=== PATIENT | female | born 1950 | race American Indian/Alaskan Native ===

== ENCOUNTER 2018-03-31 14:41 | Observation (INO) | payer MEDICARE ==
[~2018-03-31] VITALS: Ht 149.9 cm; Wt 65.3 kg
[2018-03-31 16:13] LABS: BASOPHILS % 0.1 % (0.0-1.0); EOSINOPHILS # (AUTO) 0.1 (0.0-0.4); EOSINOPHILS % 0.6 % (0.0-6.0); HEMOGLOBIN 10.4 g/dL (12.0-16.0); LYMPHOCYTES # (AUTO) 0.9 (1.0-3.2); LYMPHOCYTES % 9.4 % (18.0-39.1); MEAN CORPUSCULAR HEMOGLOBIN 22.4 pg (28-32); MEAN CORPUSCULAR HGB CONC 31.5 g/dL (31-35); MEAN CORPUSCULAR VOLUME 71.1 fL (81-99); MONOCYTES # (AUTO) 0.6 (0.2-0.8); MONOCYTES % 6.5 % (4.4-11.3); NEUTROPHILS # (AUTO) 7.7 (2.1-6.9); PLATELET COUNT 320 x10e3/uL (140-360); RED BLOOD COUNT 4.64 x10e6/uL (3.6-5.1); RED CELL DISTRIBUTION WIDTH 18.8 % (11.7-14.4)
[2018-03-31 16:25] LABS: INR 1.03; PROTHROMBIN TIME 12.7 seconds (11.9-14.5)
[2018-03-31 16:26] LABS: PARTIAL THROMBOPLASTIN TIME 26.4 seconds (23.8-35.5)
--- NOTE | 2018-03-31 16:32 | Diagnostic Imaging Report ---
EXAMINATION: PA and lateral views of the chest. COMPARISON: None CLINICAL HISTORY: Shortness of breath, history of lower lobectomy DISCUSSION: Lines/tubes: Right upper chest Port-A-Cath, with the catheter tip projecting in the distal SVC.. A radiopaque drainage catheter projects in the left lower hemithorax Lungs and pleura: Lungs are well-inflated. There is layering opacification of the left hemithorax, consistent with a large pleural effusion and likely associated compressive atelectasis. The right lung is clear.. Heart and mediastinum: Cardiac silhouette is obscured. Right pulmonary vasculature is normal. Bones and soft tissues: No acute bony abnormalities. Degenerative changes in the thoracic spine IMPRESSION: Findings likely represent large pleural effusion and likely associated compressive atelectasis. This may also represent post lobectomy pneumothorax or chylothorax, if there is history of recent surgery Signed by: Dr. Jt Azul M.D. on 03/31/2018 4:28 PM
[2018-03-31 16:38] LABS: ALANINE AMINOTRANSFERASE 12 IU/L (0-55); ALBUMIN 2.2 g/dL (3.5-5.0); ALBUMIN/GLOBULIN RATIO 0.7 (0.8-2.0); ALKALINE PHOSPHATASE 98 IU/L (40-150); ANION GAP 14.5 mmol/L (8-16); BLOOD UREA NITROGEN 12 mg/dL (7-26); BUN/CREATININE RATIO 16 (6-25); CALCIUM 8.5 mg/dL (8.4-10.2); CARBON DIOXIDE 22 mmol/L (22-29); CHLORIDE 107 mmol/L (98-107); CREATINE KINASE 31 IU/L (29-168); CREATININE, SERUM 0.74 mg/dL (0.57-1.11); EST GLOMERULAR FILTRATION RATE > 60 ML/MIN (60-); GLUCOSE 125 mg/dL (74-118); MAGNESIUM 1.5 MG/DL (1.3-2.1); POTASSIUM 3.5 mmol/L (3.5-5.1); SODIUM 140 mmol/L (136-145)
[2018-03-31 16:45] LABS: B-TYPE NATRIURETIC PEPTIDE2 86.6 pg/mL (0-100)
[2018-03-31] MEDS ORDERED: OXYCODONE/ACETAMINOPHEN 5-325 1 EACH TABLET PO STA (17:26)
[2018-03-31] MEDS ORDERED: PRILOSEC10 M1 (18:52)
[2018-03-31] MEDS ORDERED: ASPIR 8181 MG (18:52)
[2018-03-31] MEDS ORDERED: GABAPENTIN400 MG PO (18:52)
[2018-03-31] MEDS ORDERED: PROGRAF1 MG (18:52)
[2018-03-31] MEDS ORDERED: PERCOCET 5-3251 EACH (18:52)
[2018-03-31] MEDS ORDERED: METOPROLOL TART25 MG PO (18:52)
[2018-03-31 21:00] VITALS: BP 179/77
[2018-03-31] MEDS: OXYCODONE/ACETAMINOPHEN 5-325 1 EACH TABLET PO PRN (21:50)
[2018-03-31] MEDS ORDERED: OXYCODONE/ACETAMINOPHEN 5-325 1 EACH TABLET PO SCH (22:00)
[2018-04-01] VITALS (10 sets, daily range): BP systolic 145–192; BP diastolic 66–83
[2018-04-01] MEDS ORDERED: ALBUTEROL/IPRATROPIUM 3 ML NEB NEB SCH (01:00)
--- NOTE | 2018-04-01 01:25 | Consultation ---
DATE OF CONSULTATION: March 31, 2018 PULMONARY CONSULTATION REASON FOR THE CONSULT: Large left pleural effusion. CHIEF COMPLAINT: Shortness of breath. HPI: Ms. Thomas is a 67-year-old female. She lives in [place], [place] and was diagnosed with lung cancer with malignant pleural effusion. She has an indwelling pleural catheter placed; however, she forgot to bring the drainage kit with her. She came to [place] to be treated at [facility] and she has already seen Dr. Langford at [facility] for her lung cancer. She reports that she underwent lobectomy and after lobectomy, she possibly had a recurrence and now there are cancer cells and pleural effusion according to her. She denies any chest pain. She was having shortness of breath in the emergency room. Some of the pleural fluid was drained by the emergency room physician. She denies any chest pain, nausea, vomiting. REVIEW OF SYSTEMS GENERAL: Denies any fever, chills. HEAD: Denies any head trauma. ENT: Denies any earache. CVS: Denies any chest pain. RESPIRATORY: Shortness of breath. GI: Denies any nausea, vomiting. REST OF THE REVIEW SYSTEMS: Negative except as in HPI. PAST MEDICAL HISTORY 1. Status post liver transplant in 2014. Patient has alcoholic liver cirrhosis. She quit drinking for a year and underwent liver transplant. She is on Prograf. 2. Lung cancer, she has right-sided pleural effusion, which according to the patient is malignant and that has been tested. 3. Hypertension. PAST SURGICAL HISTORY: Cholecystectomy, appendectomy, incisional hernia surgery, liver transplant surgery, lobectomy, cholecystectomy. FAMILY HISTORY AND SOCIAL HISTORY: She quit smoking 3 months ago, smoked cigarettes since she was 14 years old. She smoked for 50 years. She quit drinking in 2013. She he lives in [place], [place], and all her care was at [place], [place]. Now, she has moved to [place] to be treated at [facility]. PHYSICAL EXAM VITAL SIGNS: Temperature 98.6, pulse of 85, blood pressure 167/82, he has respiratory rate of 18. O2 sat 95%. HEENT: Head atraumatic, normocephalic. NECK: Supple. CHEST: Clear to auscultation bilaterally. Reduced air entry on the right side. HEART: S1, S2 audible. ABDOMEN: Soft, nontender. EXTREMITIES: Pedal edema. NEUROLOGIC: Awake and alert. No focal neurologic deficit. LABS: White count of 9000, hemoglobin 10.4, platelets 320,000. Chemistry, sodium 140, potassium 3.5, chloride 107, BUN 12, creatinine 0.7. Chest x-ray showing large right-sided pleural effusion. ASSESSMENT AND PLAN: Ms. Thomas is a 67-year-old female with lung cancer. She was diagnosed with malignant pleural effusion and has a PleurX catheter; however, she forgot to bring her supplies and has came to the emergency room with shortness of breath. CURRENT PROBLEMS 1. Lung cancer. 2. Malignant pleural effusion. 3. History of liver transplant. 4. Ex-smoker. 5. Chronic obstructive pulmonary disease. PLAN 1. We will put a case management consult to find a [employer] company to provide her with supplies of her PleurX catheter. 2. Will start the patient on nebulizer treatment for her COPD. 3. Currently, some fluid was drained by ER physician and patient is feeling comfortable. If further drainage is needed and the catheter is not working, she will have to have conventional thoracentesis. Thank you for this consult. Job#: [id number] CQ
[2018-04-01] MEDS: OXYCODONE/ACETAMINOPHEN 5-325 1 EACH TABLET PO PRN ×5 (01:50→20:10)
[2018-04-01] MEDS: METOPROLOL TARTRATE 25 MG TAB PO SCH ×2 (08:48→16:12)
[2018-04-01] MEDS: ASPIRIN 81 MG CHEW TAB PO SCH (08:48)
[2018-04-01] MEDS: GABAPENTIN 300 MG CAP PO SCH (08:48)
[2018-04-01] MEDS: AMLODIPINE BESYLATE 5 MG TAB PO SCH (08:49)
[2018-04-01] MEDS ORDERED: GABAPENTIN 400 MG CAP PO SCH (09:00)
[2018-04-01] MEDS: TACROLIMUS 1 MG CAP PO SCH (10:15)
--- NOTE | 2018-04-01 12:11 | Diagnostic Imaging Report ---
This report includes an Addendum and supersedes previous reports for this exam. PROCEDURE: CHEST XRAY POST PROCEDURE COMPARISON: Chest radiograph 03/31/18. INDICATIONS: POST THORACENTESIS FINDINGS: Lines/tubes: Right upper chest Port-A-Cath, with the catheter tip projecting in the distal SVC. A PleurX catheter projects over the left base. Lungs and pleura: Lungs are well-inflated. Interval decrease in size of a left sided pleural effusion, now small. There is opacification of the left hemithorax with prominence of the left hilum. There is thickening of the left pleura. The right lung is clear without evidence of pneumonia or pulmonary edema. Heart and mediastinum: Cardiac silhouette is obscured. Right pulmonary vasculature is normal. Bones and soft tissues: No acute bony abnormalities. Degenerative changes in the thoracic spine IMPRESSION: Interval thoracentesis on the left with decreased left pleural effusion and decreased compressive atelectasis. No evidence of pneumothorax. Opacification of the left hemithorax with prominence of the left hilum and pleural thickening, in this patient with known lung malignancy. Correlation with prior outside imaging would be helpful for comparison. Dictated by: SHAHRIAR MILLER M.D. on 04/01/2018 at 12:17 Electronically approved by: SHAHRIAR MILLER M.D. on 04/01/2018 at 12:17 ADDENDUM: No evidence of pneumothorax post thoracentesis. Dictated by: SHAHRIAR MILLER M.D. on 04/01/2018 at 12:20 Electronically approved by: SHAHRIAR MILLER M.D. on 04/01/2018 at 12:20
--- NOTE | 2018-04-01 12:13 | Diagnostic Imaging Report ---
PROCEDURE: ULTRASOUND GUIDED LEFT DIAGNOSTIC AND THERAPEUTIC THORACENTESIS INDICATIONS: PLEURAL EFFUSIONS COMPARISON: Chest radiograph 03/31/18. TECHNIQUE: The patient was informed of the nature of the proposed procedure. The purposes, alternatives, risks, and benefits were explained and discussed. All questions were answered and written consent was obtained. Medications: 1% Xylocaine DESCRIPTION/FINDINGS: Informed consent was obtained from the patient. Sterile technique was used. Preliminary ultrasound demonstrated a moderate left pleural fluid collection. After infiltrating the skin with 1% xylocaine, a 5 Fr catheter was advanced into the left pleural space with ultrasound guidance and 350 cc of serous fluid was removed. The catheter was removed without immediate complication. Sterile bandage was placed. A chest radiograph was ordered. Samples were sent for analysis. IMPRESSION: Ultrasound guided left sided diagnostic and therapeutic thoracentesis. Dictated by: SHAHRIAR MILLER M.D. on 04/01/2018 at 12:19 Electronically approved by: SHAHRIAR MILLER M.D. on 04/01/2018 at 12:19
[2018-04-01] MEDS: ALBUTEROL/IPRATROPIUM 3 ML NEB NEB SCH ×2 (13:00→19:00)
--- NOTE | 2018-04-01 13:16 | History and Physical ---
HPI: She is a 67-year-old female with past medical history positive for adenocarcinoma of the lung stage IV, status post chemotherapy, status post partial lobectomy in the left lung, history of liver transplant secondary to cirrhosis, came here because she could not breathe. She was found to have large pleural effusion. She has a left pleural catheter. She apparently has not brought the kit that comes with the catheter, so thoracentesis had to be done by Dr. Last. Patient is feeling better right now. REVIEW OF SYSTEMS CARDIOVASCULAR: No chest pain, no palpitation. RESPIRATORY: She has shortness of breath. No cough. GASTROINTESTINAL: No nausea, no vomiting, no diarrhea. GENITOURINARY: No frequency, no dysuria. ALLERGIES: SHE IS ALLERGIC TO LATEX, LEVAQUIN, ZOFRAN, DILAUDID, TYLENOL, HYDROCODONE, CODEINE, AND PENICILLIN. SOCIAL HISTORY: She quit smoking 3 months ago. She used to drink, she does not drink anymore. PAST MEDICAL HISTORY: Positive for adenocarcinoma of the left lung, status post lobectomy, status post chemotherapy, status post PleurX catheter placed in the left lung. Also, she has history of hypertension. PHYSICAL EXAMINATION VITAL SIGNS: Blood pressure 170/77, temperature 97.7, heart rate 87 per minute, respiratory rate 18 per minute, oxygen saturation 95%. HEART: Regular rhythm. Normal S1, S2 sound. LUNGS: Show decreased breath sounds on the left lung. Clear to auscultation in the right lung. ABDOMEN: Soft. EXTREMITIES: No evidence of cyanosis, edema, or trauma. LABORATORY DATA: On the BMP; sodium 140, potassium 3.5, chloride 107, CO2 of 22, BUN 12, creatinine 0.74, glucose 125. On the CBC; white blood count 9.34, hemoglobin 10.4, hematocrit 33.0, platelet count 320,000. PT 12.7 and PTT 26.4, INR 1.03. AST 14, ALT 12, total bilirubin 0.1, alkaline phosphatase 98. FINAL IMPRESSION 1. Left pleural effusion secondary to adenocarcinoma of the lung. 2. Anemia of chronic disease. 3. Adenocarcinoma of the lung stage IV, status post pneumonectomy. 4. Hypokalemia. 5. Status post liver transplant. PLAN OF TREATMENT: Dr. Last, pulmonology, has been consulted on the case. He has done thoracentesis. Patient is trying to get the kit for the Pleur-evac that he has. We are going to continue metoprolol 25 mg twice a day. We are going to start lisinopril 20 mg daily, Norvasc 5 mg daily, hydralazine 20 mg q.4 hours as needed, albuterol and Atrovent q.4 hours as needed for shortness of breath, budesonide 1 inhalation twice a day, aspirin 81 mg daily, [place]om 1 tablet q.4 hours as needed for pain, tacrolimus 1 mg at bedtime and 2 mg daily. Patient will follow up at [facility]. Job#: [id number] STIVEN
[2018-04-01 13:22] LABS: BODY FLUID APPEARANCE SL.CLOUDY; BODY FLUID COLOR YELLOW; BODY FLUID TYPE PLEURAL
[2018-04-01 13:23] LABS: RBC,BODY FLUID 2772 cells/uL; WBC,BODY FLUID 297 cells/uL
[2018-04-01 13:32] LABS: EOSINOPHILS,BODY FLUID 2 %; LYMPHOCYTES,BODY FLUID 60 %; MONO/MACROPHG,BODY FLUID 7 %; NEUTROPHILS,BODY FLUID 11 %; OTHER CELLS,BODY FLUID 20 %
[2018-04-01] MEDS: BUDESONIDE 0.5MG/2 ML NEB INH SCH (19:00)
[2018-04-01] MEDS ORDERED: TACROLIMUS 1 MG CAP PO SCH ×2 (21:00)
[2018-04-02] VITALS: BP 175/76
[2018-04-02] MEDS: OXYCODONE/ACETAMINOPHEN 5-325 1 EACH TABLET PO PRN ×3 (00:03→08:45)
[2018-04-02] MEDS: ALBUTEROL/IPRATROPIUM 3 ML NEB NEB SCH ×2 (01:00→07:00)
[2018-04-02] MEDS: HYDRALAZINE HCL 20 MG/ML VIAL IV PRN ×2 (02:23→04:16)
[2018-04-02 04:00] VITALS: BP 133/65
[2018-04-02] MEDS: BUDESONIDE 0.5MG/2 ML NEB INH SCH (07:00)
[2018-04-02 07:47] VITALS: BP 125/63
[2018-04-02] MEDS: GABAPENTIN 300 MG CAP PO SCH (08:16)
[2018-04-02] MEDS: AMLODIPINE BESYLATE 5 MG TAB PO SCH (08:16)
[2018-04-02] MEDS: METOPROLOL TARTRATE 25 MG TAB PO SCH (08:16)
[2018-04-02] MEDS: ASPIRIN 81 MG CHEW TAB PO SCH (08:16)
[2018-04-02] MEDS: TACROLIMUS 1 MG CAP PO SCH (08:17)
[2018-04-02] MEDS ORDERED: LISINOPRIL 20 MG TAB PO SCH (09:00)
[2018-04-02] MEDS ORDERED: PROGRAF1 MG PO ×2 (10:11)
--- NOTE | 2018-04-02 16:51 | Progress Note ---
DATE: The patient is feeling better. Last night, blood pressure was high. Hydralazine was given. Status post thoracentesis yesterday. PHYSICAL EXAMINATION VITAL SINGS: Temperature 96.8, pulse of 73, blood pressure 125/63, respiratory rate of 18, and O2 sat 95%. HEENT: Atraumatic, normocephalic. NECK: Supple. CHEST: Better air entry bilaterally. HEART: S1 and S2 audible. ABDOMEN: Soft. EXTREMITIES: No pedal edema. NEUROLOGICAL: Awake and alert. LABS: Sodium 140, potassium 3.5, chloride 107, BUN 12, and creatinine 0.7, this was on March 31, 2018. No new labs. ASSESSMENT/PLAN: Ms. Thomas is a 67-year-old female who has large pleural effusion status post thoracentesis. Patient has indwelling pleural catheter, also has history of stage 4 adenocarcinoma of the lung. CURRENT PROBLEM 1. Adenocarcinoma of the lung. Dr. Merrill just called me the patient's pleural fluid is positive for malignant cell, hence stage 4. Patient is following up at [facility]. Status post liver transplant program has been started. 2. Hypertension. Continue the patient on antihypertensive medications. 3. Ex-smoker, quit 3 months ago, likely has COPD. I have started the patient on Pulmicort nebulizer treatment and she will follow up with me as an outpatient. 4. Discussed with RN and discussed with case management. Patient will get the supplies for her indwelling pleural catheter to do pleural fluid drainage at home. Job#: [id number] ONESIMO
== END 2018-04-02 11:01 | disposition home or self-care (01) ==
LOC: ER 14:41 → ERHOLD 18:25 → IMCU 20:29
PROVIDERS: ADMIT Internal Medicine; ATTEND Internal Medicine
DX: C34.92 Malignant neoplasm of unspecified part of left bronchus or lung (principal); J91.0 Malignant pleural effusion; R06.00 Dyspnea, unspecified; Z94.4 Liver transplant status; Z88.5 Allergy status to narcotic agent; Z88.0 Allergy status to penicillin; Z88.8 Allergy status to other drugs, medicaments and biological substances; Z88.6 Allergy status to analgesic agent; Z88.1 Allergy status to other antibiotic agents; Z91.040 Latex allergy status; Z87.891 Personal history of nicotine dependence; D63.8 Anemia in other chronic diseases classified elsewhere; E87.6 Hypokalemia; J44.9 Chronic obstructive pulmonary disease, unspecified; I10 Essential (primary) hypertension
CPT/HCPCS: 32555 ×2; 36415 ×2; 71045; 71046; 74470; 80053; 82550; 82553; 83605; 83615; 83735; 83880; 84157; 84484; 85025; 85610; 85730; 88112; 88305; 89051; 93005; 94640; 97116; 97161; 99284; G0378 ×3; G8978; G8979; J7507 ×2

== ENCOUNTER 2018-04-06 10:18 | Inpatient (IN) | payer MEDICARE ==
[~2018-04-06] VITALS: Ht 149.9 cm; Wt 63.1 kg
[~2018-04-06 10:18] MED LIST: ASPIR 8181 MG; GABAPENTIN400 MG PO; METOPROLOL TART25 MG PO; PERCOCET 5-3251 EACH; PRILOSEC10 M1; PROGRAF1 MG; PROGRAF1 MG PO
--- NOTE | 2018-04-06 11:27 | Diagnostic Imaging Report ---
PROCEDURE: Frontal and lateral views of the chest. COMPARISON: 04/01/18 INDICATIONS: CHEST PAIN/SHORTNESS OF BREATH FINDINGS: Lines/tubes: Stable right chest wall port. A PleurX catheter projects over the left base. Lungs and pleura: The lungs are well inflated. Unchanged left pleural thickening. Increased left lung opacification. Right lung is unremarkable. Heart and mediastinum: The heart and the mediastinum are normal. Bones: No acute bony abnormality. IMPRESSION: Near complete opacification of the left lung, likely due to increased pleural effusion when compared to the prior x-ray. Underlying pneumonia/atelectasis cannot be excluded. Dictated by: Kurt Flores M.D. on 04/06/2018 at 11:33 Electronically approved by: Kurt Flores M.D. on 04/06/2018 at 11:33
[2018-04-06 11:51] LABS: BASOPHILS % 0.4 % (0.0-1.0); EOSINOPHILS # (AUTO) 0.1 (0.0-0.4); HEMOGLOBIN 9.9 g/dL (12.0-16.0); LYMPHOCYTES # (AUTO) 1.1 (1.0-3.2); LYMPHOCYTES % 13.6 % (18.0-39.1); MEAN CORPUSCULAR HEMOGLOBIN 22.3 pg (28-32); MEAN CORPUSCULAR HGB CONC 30.9 g/dL (31-35); MEAN CORPUSCULAR VOLUME 72.2 fL (81-99); MONOCYTES # (AUTO) 0.7 (0.2-0.8); MONOCYTES % 8.7 % (4.4-11.3); NEUTROPHILS # (AUTO) 6.3 (2.1-6.9); NEUTROPHILS % 75.8 % (38.7-80.0); PLATELET COUNT 437 x10e3/uL (140-360); RED BLOOD COUNT 4.43 x10e6/uL (3.6-5.1); RED CELL DISTRIBUTION WIDTH 18.6 % (11.7-14.4)
[2018-04-06 12:11] LABS: ALANINE AMINOTRANSFERASE 9 IU/L (0-55); ALBUMIN 2.2 g/dL (3.5-5.0); ALBUMIN/GLOBULIN RATIO 0.7 (0.8-2.0); ALKALINE PHOSPHATASE 93 IU/L (40-150); ANION GAP 12.9 mmol/L (8-16); BLOOD UREA NITROGEN 18 mg/dL (7-26); BUN/CREATININE RATIO 20 (6-25); CALCIUM 8.6 mg/dL (8.4-10.2); CARBON DIOXIDE 22 mmol/L (22-29); CHLORIDE 106 mmol/L (98-107); CREATININE, SERUM 0.91 mg/dL (0.57-1.11); EST GLOMERULAR FILTRATION RATE > 60 ML/MIN (60-); GLUCOSE 115 mg/dL (74-118); POTASSIUM 3.9 mmol/L (3.5-5.1); SODIUM 137 mmol/L (136-145)
[2018-04-06] MEDS ORDERED: MORPHINE SULFATE INJ 4 MG/ML INJ IV ONE (12:22)
[2018-04-06] MEDS ORDERED: MORPHINE SULFATE INJ 4 MG/ML INJ ONE (12:23)
[2018-04-06] MEDS ORDERED: IOPAMIDOL 370 MG/ML 200 ML INFUS..BTL INJ ONE (13:00)
[2018-04-06] MEDS ORDERED: SODIUM CHLORIDE 0.9% 50ML 50 ML ONE (13:00)
[2018-04-06] MEDS ORDERED: SODIUM CHLORIDE FLUSH 10 ML SYR INJ PRN (13:15)
[2018-04-06] MEDS ORDERED: METOCLOPRAMIDE HCL 10 MG/2ML VIAL IV PRN (13:15)
[2018-04-06] MEDS ORDERED: MORPHINE SULFATE 2 MG/ML SYR IV PRN (14:00)
--- NOTE | 2018-04-06 15:02 | Diagnostic Imaging Report ---
EXAM: CT Chest WITH contrast (PE Protocol) INDICATION: \S\Chest pain, SOB, rule out PE, history of Lung CA \S\[id number] \S\[id number] COMPARISON: Chest x-ray of the same date. TECHNIQUE: Chest was scanned utilizing a multidetector helical scanner from the lung apex through the level of the diaphragm after administration of IV contrast. Thin section reconstructions were obtained with special concentration on the pulmonary arteries. Coronal and sagittal reformations were obtained. Pulmonary embolism protocol was performed. IV CONTRAST: 100 mL of Isovue-370 COMPLICATIONS: None RADIATION DOSE: Total DLP: 458.69 mGy*cm Estimated effective dose: (DLP x 0.014 x size factor) mSv CTDIvol has been reviewed. It is below the limits set by the Radiation Protocol Committee (RPC). FINDINGS: LINES/ TUBES: Right chest wall port in place with tip terminating at cavoatrial junction. Posterolateral lower thorax catheter in place with tip terminating in the left base. LUNGS AND AIRWAYS: No filling defect is identified within the pulmonary arteries to the segmental level. The left upper lobe is completely collapsed and replaced by effusion. Infiltrative mass, encasing the right hilar vessels with complete occlusion of the left upper lobe pulmonary artery and airway. Significant nodular intralobular septal thickening of the small aerated left lower lobe and possible numerous nodules. Upper lobe predominant emphysematous changes, seen in right lung. Pulmonary vascular congestion. 4 mm lateral right middle lobe nodule (3/67). Few additional subcentimeter right lung nodules. Mild dependent atelectasis of the right lung base. Right Airways are intact. Significant narrowing and encasement of the left main bronchus with cancer with minimal air extending to the left lower lobe segmental branches. PLEURA: Trace right pleural effusion. Moderate loculated left pleural effusion. HEART AND MEDIASTINUM: The visualized thyroid gland is normal. No axillary lymphadenopathy. 1 cm paratracheal (series 2, image 36) and 2 cm subcarinal (2/46) lymph nodes. Bilateral hilar adenopathy, measuring up to 1.9 cm on the right side (2/45). The heart is normal in size. There is a small pericardial effusion. . Main pulmonary artery measures 2.4 cm in diameter. UPPER ABDOMEN: Metallic structure in left upper abdomen which shadowing, probably vascular coil, limits evaluation. BONES: T7 vertebral body sclerotic focus measures 0.8 cm. SOFT TISSUES: Unremarkable. Fat-containing midline upper abdominal ventral hernias. IMPRESSION: 1. No pulmonary emboli. 2. Infiltrative left lung mass, encasing the left hilar vessels with complete occlusion of the left upper lobe pulmonary artery as well as airway and collapsed left upper lobe. The left upper lobe pleural space is replaced by pleural effusion. 3. Significant nodular interlobular septal thickening of the small aerated portion of the left lower lobe with possible numerous nodules. 4. Encasement and significant narrowing/near complete occlusion of the left main bronchus with minimal air within left lower lobe airways. 5. Emphysematous changes of the lungs. 6. Trace right pleural effusion. 7. Mediastinal and hilar lymphadenopathy. Signed by: Dr. Kurt Flores MD on 04/06/2018 2:59 PM
[2018-04-06] MEDS ORDERED: OXYCODONE/ACETAMINOPHEN 5-325 1 EACH TABLET PO PRN (17:00)
--- NOTE | 2018-04-06 18:00 | History and Physical ---
CHIEF COMPLAINT: Left chest pain associated with a large pleural effusion with infiltrative left lung mass encasing the left hilar vessel on the CT scan, associated with a complete occlusion of the left upper lobe pulmonary artery as well as the airway, significant pleural effusion with a complete whiteout of the left lung on CT scan of the chest. HISTORY OF PRESENT ILLNESS: The patient is a pleasant but unfortunate 67-year-old female diagnosed with lung cancer, adenocarcinoma stage IV with large left pleural effusion. She has chest drain in place. She was just recently here at [facility] on April 01, 2018, and the patient was subsequently discharged home. She came back in within a week with increasing left chest discomfort, increasing shortness of breath. CT scan showed whiteout of the left lung. The patient is now status post a left lung drain and significant amount of fluid obtained, approximately 900 mL, but more importantly it is bloody fluid. The patient is more comfortable now after the drainage. She had lab work done. She is anemic. Hemoglobin and hematocrit 9.19 and 32 respectively. The patient is stable. She does have a low-grade fever. The patient is pending for seen by her cuff stitcher here, who previously is Dr. Last. The patient is stable at this time. PAST MEDICAL HISTORY: Stage IV lung cancer with a left lung mass and also recurrent pleural effusion. The patient has drainage in place. She did receive chemotherapy 1 dose back in October in [place] where she lives. She had 1 appointment with [facility] last Friday and her appointment with a cuff stitcher there next week. SOCIAL HISTORY: Patient was a smoker. She quit. She denied alcohol usage. No recreational drug use. ALLERGIES: TO PENICILLIN, CODEINE, HYDROCODONE, HYDROMORPHONE, LATEX, LEVOFLOXACIN AND ONDANSETRON. HOME MEDICATIONS: Aspirin, gabapentin, metoprolol, omeprazole, Percocet, Prograf. PHYSICAL EXAMINATION: VITAL SIGNS: Temperature is 98. Blood pressure 120/62. Pulse rate is 69. Respirations 22. GENERAL: The patient is not in acute distress. She is awake. She was in pain but much improved now. HEENT: Normocephalic, atraumatic, anicteric. NECK: Supple grossly. PULMONARY: Bilateral diminished breath sounds, more on the left compared to the right. A left lung drain in place. EXTREMITIES: No cyanosis or edema. NEUROLOGIC: No gross focal deficit. LABORATORY: WBC is 8, hemoglobin 9.9, hematocrit 32 and platelets are 437. Chemistry: Sodium 137, potassium 3.9, chloride 106, bicarb 22, BUN 18, creatinine 0.9, glucose is 115. CT scan as mentioned. IMPRESSION: 1. Significant, severe left lung pleural effusion with a complete whiteout status post drainage, approximately 900 mL of body fluid. 2. Lung cancer, adenocarcinoma type. 3. Stage IV lung cancer as mentioned. 4. Possible imposing pneumonia. PLAN: IV antibiotics, vancomycin and Azactam for now. Continue with home medications. Consultation with Dr. Last. Repeat the x-ray. Repeated lab workup. Will monitor the patient closely. Pain control. Job#: [id number] JUAN LUIS
[2018-04-06] MEDS: FAMOTIDINE 20 MG/2 ML VIAL IV SCH (18:33)
[2018-04-06] MEDS: VANCOMYCIN 1GM/NS 250 ML 250 ML IV SCH (18:35)
[2018-04-06] MEDS ORDERED: MORPHINE SULFATE 2 MG/ML SYR ONE (21:17)
[2018-04-06] MEDS: TACROLIMUS 1 MG CAP PO SCH (21:22)
[2018-04-06] MEDS: MORPHINE SULFATE INJ 4 MG/ML INJ IV PRN (21:29)
[2018-04-06] MEDS: AZTREONAM 1 GM/NS 50 ML 50 ML IV SCH (22:03)
[2018-04-06 22:28] LABS: BODY FLUID APPEARANCE CLOUDY; BODY FLUID COLOR RED; BODY FLUID TYPE PLEURAL
[2018-04-06 22:32] LABS: RBC,BODY FLUID 35553 cells/uL; WBC,BODY FLUID 45 cells/uL
[2018-04-06 22:46] LABS: LYMPHOCYTES,BODY FLUID 68 %; MONO/MACROPHG,BODY FLUID 25 %; NEUTROPHILS,BODY FLUID 7 %
[2018-04-07] MEDS: OXYCODONE/ACETAMINOPHEN 5-325 1 EACH TABLET PO PRN ×6 (01:39→23:22)
--- NOTE | 2018-04-07 03:46 | Diagnostic Imaging Report ---
EXAM: CHEST 2 VIEWS, PA and lateral INDICATION: Shortness of breath, lung cancer COMPARISON: PA and lateral view of the chest April 06, 2018 FINDINGS: LINES/TUBES: Stable right internal jugular vein tunneled chest port. Left basilar pleural drain. Left upper quadrant coils. LUNGS: Stable pleural effusion. Surgical sutures left medial upper lung. PLEURA: No effusions or pneumothorax. HEART AND MEDIASTINUM: Obscured BONES AND SOFT TISSUES: No acute findings. IMPRESSION: Stable appearance of the chest with near complete opacification of the left lung. Signed by: Dr. Izabel Agrawal M.D. on 04/07/2018 3:41 AM
[2018-04-07 05:42] LABS: BASOPHILS % 0.3 % (0.0-1.0); EOSINOPHILS % 0.5 % (0.0-6.0); HEMATOCRIT 33.5 % (34.2-44.1); HEMOGLOBIN 10.4 g/dL (12.0-16.0); LYMPHOCYTES % 12.5 % (18.0-39.1); MEAN CORPUSCULAR HEMOGLOBIN 22.3 pg (28-32); MEAN CORPUSCULAR VOLUME 71.9 fL (81-99); MONOCYTES # (AUTO) 0.5 (0.2-0.8); MONOCYTES % 6.9 % (4.4-11.3); NEUTROPHILS % 79.1 % (38.7-80.0); PLATELET COUNT 438 x10e3/uL (140-360); RED BLOOD COUNT 4.66 x10e6/uL (3.6-5.1); RED CELL DISTRIBUTION WIDTH 18.6 % (11.7-14.4)
[2018-04-07 06:08] LABS: ALANINE AMINOTRANSFERASE 9 IU/L (0-55); ALBUMIN 2.2 g/dL (3.5-5.0); ALBUMIN/GLOBULIN RATIO 0.7 (0.8-2.0); ALKALINE PHOSPHATASE 98 IU/L (40-150); BLOOD UREA NITROGEN 16 mg/dL (7-26); BUN/CREATININE RATIO 22 (6-25); CALCIUM 8.7 mg/dL (8.4-10.2); CARBON DIOXIDE 23 mmol/L (22-29); CHLORIDE 107 mmol/L (98-107); CREATININE, SERUM 0.73 mg/dL (0.57-1.11); EST GLOMERULAR FILTRATION RATE > 60 ML/MIN (60-); GLUCOSE 108 mg/dL (74-118); SODIUM 140 mmol/L (136-145)
[2018-04-07] MEDS: VANCOMYCIN 1GM/NS 250 ML 250 ML IV SCH ×2 (06:49→17:58)
[2018-04-07] MEDS ORDERED: GABAPENTIN 400 MG CAP PO SCH (09:00)
[2018-04-07] MEDS: METOPROLOL TARTRATE 25 MG TAB PO SCH ×2 (09:08→17:58)
[2018-04-07] MEDS: TACROLIMUS 1 MG CAP PO SCH ×2 (09:08→20:50)
[2018-04-07] MEDS: GABAPENTIN 300 MG CAP PO SCH (09:09)
[2018-04-07] MEDS: AZTREONAM 1 GM/NS 50 ML 50 ML IV SCH ×2 (09:20→21:30)
[2018-04-07] MEDS ORDERED: ALPRAZOLAM 0.25 MG TAB PO SCH (10:00)
[2018-04-07] MEDS: ALPRAZOLAM 0.25 MG TAB PO PRN ×2 (10:24→20:51)
--- NOTE | 2018-04-07 11:26 | Consultation ---
DATE OF CONSULTATION: PULMONARY CONSULTATION REASON FOR CONSULTATION: Lung cancer, shortness of breath. HPI: Ms. Thomas is a 67-year-old female. She is known to me from last admission. She presented last time with the complaint of shortness of breath. She has stage-IV lung cancer. Her pleural effusion last time was positive for malignant cells. This time, she came in again with shortness of breath. A CT of the chest was done. Pleural fluid was drained with an indwelling pleural catheter. She has a large mass encasing the hilum and encasing the trachea, and it is involving the left lung almost completely. She is denying any nausea or vomiting. REVIEW OF SYSTEMS GENERAL: Denies any fever or chills. HEAD: Denies any head trauma. ENT: Denies any earache. CVS: Denies any chest pain. RESPIRATORY: Shortness of breath. OTHER: The rest of the review systems are negative except as in HPI. PAST MEDICAL HISTORY: Patient has history of liver transplant in 2014 on Prograf. Lung cancer with right-sided pleural effusion, stage IV. The last time, the pleural effusion was positive for malignant cells. Hypertension. SURGICAL HISTORY: Cholecystectomy, appendectomy, incisional hernia, liver transplant surgery. Lobectomy of the lung as initially it was stage I, and it is a recurrence of cancer. Cholecystectomy. FAMILY HISTORY AND SOCIAL HISTORY: She quit smoking 3 months ago. Smoked cigarettes since she was 14 years old. She lives in [place], [place], and all of her care was in [place]. Now she has moved to [place] to be treated at [facility]. PHYSICAL EXAMINATION VITAL SIGNS: Temperature 98.5, pulse of 75, blood pressure 153/83, respiratory rate 18. HEENT: Head is atraumatic, normocephalic. NECK: Supple. CHEST: Markedly reduced air entry and reduced air entry on the left side, otherwise clear. HEART: S1, S2 audible. ABDOMEN: Soft, nontender, nondistended. EXTREMITIES: No pedal edema. NEUROLOGIC: Awake, alert. No focal neurological deficit. LABS: White count of 7.6, hemoglobin 10.4, platelets 438. Chemistry is within normal limits. INR is 1.03. ASSESSMENT AND PLAN 1. A 67-year-old female with shortness of breath, stage-IV extensive lung cancer involving the left lung. Patient wants her care to be done at [facility]. Recommended the patient should go to [facility] as soon as possible for followup. The symptoms are likely due to spread and advancement of the malignancy and not likely due to pleural effusion as it has been drained and there is minimal left. 2. Status post liver transplant. Patient should be continued on Prograf. 3. Agree with IV antibiotics to treat for postobstructive pneumonia. 4. I will discuss the case with Dr. Peres if she can be sent out for her appointment with [facility]. She told me that it is tomorrow. Job#: [id number]
[2018-04-07 13:45] VITALS: BP 146/80
[2018-04-07 16:00] VITALS: BP 132/58
[2018-04-07] MEDS: FAMOTIDINE 20 MG/2 ML VIAL IV SCH (17:00)
[2018-04-07] MEDS ORDERED: SODIUM CHLORIDE 0.9% 100 ML ONE (17:15)
[2018-04-07 20:00] VITALS: BP 163/77
[2018-04-07 20:10] VITALS: BP 163/77
[2018-04-07] MEDS: MORPHINE SULFATE INJ 4 MG/ML INJ IV PRN (21:41)
[2018-04-07] MEDS ORDERED: SODIUM CHLORIDE 0.9% 250ML 250 ML ONE (21:45)
[2018-04-08] VITALS: BP 154/86
[2018-04-08 04:00] VITALS: BP 169/75
[2018-04-08] MEDS: VANCOMYCIN 1GM/NS 250 ML 250 ML IV SCH (05:26)
[2018-04-08] MEDS: OXYCODONE/ACETAMINOPHEN 5-325 1 EACH TABLET PO PRN ×2 (05:26→09:39)
[2018-04-08 07:30] VITALS: BP 184/87
[2018-04-08] MEDS: AZTREONAM 1 GM/NS 50 ML 50 ML IV SCH (08:13)
[2018-04-08] MEDS: GABAPENTIN 300 MG CAP PO SCH (08:13)
[2018-04-08] MEDS: FAMOTIDINE 20 MG/2 ML VIAL IV SCH (08:13)
[2018-04-08] MEDS: METOPROLOL TARTRATE 25 MG TAB PO SCH (08:14)
[2018-04-08] MEDS: TACROLIMUS 1 MG CAP PO SCH (08:14)
[2018-04-08 08:22] VITALS: BP 189/81
[2018-04-08] MEDS ORDERED: HEPARIN 500 UNITS/5ML MDV INJ ONE (09:30)
--- NOTE | 2018-04-08 15:39 | Discharge Summary ---
FINAL DIAGNOSES: 1. Malignant lung cancer stage IV associated with left pleural effusion. 2. Malignant pleural effusions status post thoracentesis. 3. Acute on chronic hypoxia. 4. Possible developing pneumonia. SUMMARY: Patient is a 67-year-old female from [place]. The patient came to the hospital for increasing shortness of breath and hypoxia. Patient had a left thoracentesis. The fluid showed a bloody fluid. Patient felt a little bit better, but fluid reaccumulated fast. The patient does have a pulmonary port in place where fluid can be drained. The patient has an appointment with [facility] this morning. The patient was discharged to go to [facility] today. The patient is otherwise stable. She will resume her home medication upon discharge. Job#: [id number] JUAN LUIS
== END 2018-04-08 10:02 | disposition home or self-care (01) | DRG 180 ==
LOC: ER 10:18 → ERHOLD 13:03 → OBSVTOIN 17:30 → MED/SURG2 04-07 14:12
PROVIDERS: ADMIT Internal Medicine; ATTEND Internal Medicine
PROC: 0W9B3ZZ Drainage of Left Pleural Cavity, Percutaneous Approach (ICD-10-PCS; principal; 2018-04-06)
DX: C34.92 Malignant neoplasm of unspecified part of left bronchus or lung (principal); J18.9 Pneumonia, unspecified organism; R18.8 Other ascites; J91.0 Malignant pleural effusion; Z94.4 Liver transplant status; D63.8 Anemia in other chronic diseases classified elsewhere; R09.02 Hypoxemia; Z87.891 Personal history of nicotine dependence
CPT/HCPCS: 36415; 71046; 71260; 80053; 82945; 82948; 83615; 84157; 84484; 85025; 87070; 87205; 89051; 93005; 99284; J2270; J2765; J3370; J7050; J7507; Q9967